=== PATIENT | male | born 1985 ===

== ENCOUNTER 2017-01-09 07:23 | Inpatient (IN) | payer OTHER ==
[2017-01-09] MEDS ORDERED: Sodium Chloride 0.9% 1,000 ML IV SCH ×2 (08:00→15:59)
--- NOTE | 2017-01-09 08:00 | ED PDOC ---
HPI: Abdomen Time Seen by Provider: 01/09/17 07:35 Chief Complaint (Nursing): Abdominal Pain Chief Complaint (Provider): Abdominal Pain History Per: Patient History/Exam Limitations: no limitations Onset/Duration Of Symptoms: Days Current Symptoms Are (Timing): Still Present Severity: Moderate Pain Scale Rating Of: 7 Location Of Pain/Discomfort: RLQ, LLQ Quality Of Discomfort: "Pain" Associated Symptoms: Loss Of Appetite. denies: Fever, Nausea, Vomiting, Diarrhea, Urinary Symptoms Exacerbating Factors: None Alleviating Factors: None Additional Complaint(s): Patient is a 31 year old male with no past medical history, presents to ED for evaluation of lower abdominal pain that began yesterday. Patient describes pain was constant but waxing and waning with no appetite. States he tried Pepto without relief last night. Denies fever,urinary changes, nausea, vomiting or diarrhea. He describes the pain as "grabbing". No radiation of the pain. Pain is a 3 or 4 on 1-10 scale. Notes this has never happened before. PMD: None Past Medical History Reviewed: Historical Data, Nursing Documentation, Vital Signs Vital Signs: Last Vital Signs Temp 98.5 F 01/09/17 07:31 Pulse 70 01/09/17 07:31 Resp 18 01/09/17 07:31 BP 142/75 01/09/17 07:31 Pulse Ox 100 01/09/17 10:56 - Medical History PMH: No Chronic Diseases - Surgical History Surgical History: No Surg Hx - Family History Family History: States: No Known Family Hx - Living Arrangements Living Arrangements: With Family - Social History Current smoker - smoking cessation education provided: No Ex-Smoker (has not smoked in the last 12 months): No Alcohol: None Drugs: Denies - Home Medications Home Medications: Ambulatory Orders Medication Instructions Recorded No Known Home Med 01/09/17 - Allergies Allergies/Adverse Reactions: Allergies Allergy/AdvReac Type Severity Reaction Status Date / Time No Known Allergies Allergy Verified 01/09/17 07:41 Review of Systems ROS Statement: Except As Marked, All Systems Reviewed And Found Negative Constitutional: Negative for: Fever, Chills Cardiovascular: Negative for: Chest Pain, Palpitations Respiratory: Negative for: Shortness of Breath Gastrointestinal: Positive for: Abdominal Pain. Negative for: Nausea, Vomiting , Diarrhea, Constipation, Melena, Hematochezia, Hematemesis Genitourinary Male: Negative for: Dysuria, Hematuria Musculoskeletal: Negative for: Back Pain Skin: Negative for: Rash Neurological: Negative for: Weakness, Numbness Physical Exam - Reviewed Nursing Documentation Reviewed: Yes Vital Signs Reviewed: Yes - Physical Exam Appears: Positive for: Non-toxic, Uncomfortable Skin: Positive for: Normal Color, Warm Eye Exam: Positive for: Normal appearance Neck: Positive for: Normal, Painless ROM Cardiovascular/Chest: Positive for: Regular Rate, Rhythm. Negative for: Murmur Respiratory: Positive for: Normal Breath Sounds. Negative for: Wheezing Gastrointestinal/Abdominal: Positive for: Bowel Sounds (active), Soft, Tenderness (bilateral low abd tenderness but very marked in RLQ). Negative for : Distended, Guarding, Rebound Back: Positive for: Normal Inspection Extremity: Positive for: Normal ROM Neurologic/Psych: Positive for: Alert, Oriented - Laboratory Results Result Diagrams: 01/09/17 08:00 01/09/17 08:00 - ECG O2 Sat by Pulse Oximetry: 100 (RA) Pulse Ox Interpretation: Normal Medical Decision Making Medical Decision Making: Time: 0755 Initial impression: Abdominal pain Differential diagnosis includes but is not limited to: appendicitis, gastroenteritis Initial plan: -- Type and screen -- CT-abdomen w/o PO contrast (using new CT abd pain protocol) -- Amylase -- CMP -- Lipase -- CBC -- PT/PTT -- U/A Time: 0900 Lab results reviewed WBC elevated at 11.8 Coags, Chem and Urine WNL 10:[address] is suggestive of early appendicitis. I will page surgery now (Dr. Shetty applications project manager today). 10:[address] Watson is covering for Dr. Caldwell. He recommends evaluation by residential treatment staff. Surg resident was paged. 11:14 AM I just spoke to residential treatment staff. She will evaluate the pt. Scribe Attestation: Documented by Nadine Zhao acting as a scribe for Zay Avalos MD MD Scribe Attestation: All medical record entries made by the Scribe were at my direction and personally dictated by me. I have reviewed the chart and agree that the record accurately reflects my personal performance of the history, physical exam, medical decision making, and the department course for this patient. I have also personally directed, reviewed, and agree with the discharge instructions and disposition. Disposition - Clinical Impression Clinical Impression: Appendicitis - Patient ED Disposition Is Patient to be Admitted: Yes Counseled Patient/Family Regarding: Studies Performed, Diagnosis - Disposition Disposition Time: 10:54 Condition: STABLE - Pt Status Changed To: Hospital Disposition Of: Inpatient - Admit Certification Admit to Inpatient:: After my assessment, the patient will require hospitalization for at least two midnights. This is because of the severity of symptoms shown, intensity of services needed, and/or the medical risk in this patient being treated as an outpatient.
[2017-01-09 08:18] LABS: BASO % 0.3 % (0.0-2.0); EOS # 0.3 K/uL (0.0-0.7); EOS % 2.7 % (0.0-4.0); HEMATOCRIT 42.4 % (35.0-51.0); LYMPH # 2.2 K/uL (1.0-4.3); LYMPH % 18.6 % (20.0-40.0); MEAN CELL VOLUME 88.8 fl (80.0-94.0); MEAN CORPUSCULAR HEMOGLOBIN 29.7 pg (27.0-31.0); MEAN CORPUSCULAR HGB CONC 33.5 g/dL (33.0-37.0); MEAN PLATELET VOLUME 10.1 fl (7.2-11.7); MONO # 0.8 K/uL (0.0-0.8); MONO % 7.2 % (0.0-10.0); NEUT # 8.4 K/uL (1.8-7.0); NEUT % 71.2 % (50.0-75.0); RED CELL DISTRIBUTION WIDTH 12.8 % (11.5-14.5); WHITE BLOOD COUNT 11.8 K/uL (4.8-10.8)
[2017-01-09 08:23] LABS: RBC URINE 4 /hpf (0-3); URINE BACTERIA RARE (<OCC); URINE BILIRUBIN NEGATIVE (NEGATIVE); URINE BLOOD NEGATIVE (NEGATIVE); URINE COLOR YELLOW (YELLOW); URINE GLUCOSE (UA) NEG (Normal); URINE KETONE NEGATIVE (NEGATIVE); URINE LEUKOCYTE ESTERASE NEG Leu/uL (Negative); URINE PROTEIN NEGATIVE (NEGATIVE); URINE UROBILINOGEN 0.2-1.0 mg/dL (0.2-1.0); WBC URINE 1 /hpf (0-5)
[2017-01-09 08:32] LABS: ALB/GLOB RATIO 1.2 (1.0-2.1); ALKALINE PHOSPHATASE 78 U/L (38-126); ALT/SGPT 61 U/L (21-72); AMYLASE 79 U/L (30-110); AST/SGOT 33 U/L (17-59); BILIRUBIN,TOTAL 0.8 mg/dl (0.2-1.3); BLOOD UREA NITROGEN 11 mg/dl (9-20); CALCIUM 9.3 mg/dL (8.4-10.2); CARBON DIOXIDE 27 mmol/L (22-30); CHLORIDE 102 mmol/L (98-107); GFR AFRICAN-AMERICAN > 60; GLUCOSE,RANDOM 94 mg/dL (75-110); LIPASE 64 U/L (23-300); POTASSIUM 3.8 MMOL/L (3.6-5.0); SODIUM 140 mmol/l (132-148); TOTAL PROTEIN 8.4 G/DL (6.3-8.2)
[2017-01-09 08:47] LABS: PARTIAL THROMBOPLASTIN TIME 32.2 Seconds (25.6-37.1)
[2017-01-09] MEDS ORDERED: Iohexol 300 100 ML IJ ONE (08:47)
[2017-01-09] MEDS ORDERED: Sodium Chloride 0.9% 50 ML IV ONE (08:47)
--- NOTE | 2017-01-09 10:21 | CT ---
PROCEDURE: CT Abdomen and Pelvis with contrast HISTORY: RLQ pain; no appetite; r/o appendicitis COMPARISON: None available. TECHNIQUE: Contrast dose: 95 mL Omnipaque 300 Radiation dose: Total exam DLP = 1076.44 mGy-cm. This CT exam was performed using one or more of the following dose reduction techniques: Automated exposure control, adjustment of the mA and/or kV according to patient size, and/or use of iterative reconstruction technique. FINDINGS: LOWER THORAX: Minimal basilar atelectasis. No visible pleural effusion or pneumothorax. Small hiatal hernia. LIVER: Hypoattenuation of the liver compatible with hepatic steatosis. GALLBLADDER AND BILE DUCTS: Unremarkable. PANCREAS: Unremarkable. SPLEEN: Unremarkable. ADRENALS: Unremarkable. KIDNEYS AND URETERS: The kidneys enhance symmetrically. No hydronephrosis or obstructing calculus identified. VASCULATURE: No aortic aneurysm. BOWEL: The stomach is nondistended. Lack of oral contrast limits evaluation for bowel pathology. Bowel loops appear within normal limits of caliber without evidence of obstruction. Mild constipation. APPENDIX: The presumed appendix measures approximately 8 mm in diameter, mildly dilated. Mild adjacent inflammatory changes evident. PERITONEUM: No significant free fluid. No definite free air. LYMPH NODES: No bulky adenopathy identified. BLADDER: Several small calcifications within the anterior nondependent portion of the urinary bladder of unclear significance. Urinary bladder wall appears mildly thickened at this location and at least 1 of the calcifications may reside within the wall. REPRODUCTIVE: The prostate gland measures approximately 3.0 x 4.1 cm. BONES: No acute osseous abnormality is detected. OTHER FINDINGS: None. IMPRESSION: The presumed appendix measures approximately 8 mm in diameter, mildly dilated. Mild adjacent inflammatory changes evident. Correlate clinically for acute appendicitis including white blood cell count and physical exam. Several small calcifications within the anterior nondependent portion of the urinary bladder of unclear significance. Urinary bladder wall appears mildly thickened at this location and at least 1 of the calcifications may reside within the wall. Mild constipation. Hepatic steatosis.
--- NOTE | 2017-01-09 11:43 | CP.PCM.HP ---
<Linsey Moralez - Last Filed: 01/09/17 11:32> History of Present Illness - History of Present Illness History of Present Illness: General Surgery - Dr. Caldwell 31yo M w/ no PMH/PSH who presents to ED with RLQ abdominal pain since yesterday around 10am. Pt states the pain began in the middle of his abdomen and slowly became worse. Last night the pain migrated to the RLQ and persisted into this morning. He describes the pain as sharp/stabbing and radiates to his LLQ. Pt. admits to mild chills. He denies any other associated symptoms including Nausea /Vomiting, Fevers, Dysuria, Hematuria, Diarrhea, Constipation. PMH/PSH: None No home medications NKDA No smoking. Social ETOH Pt was seen in the ED. Labs significant for leukocytosis w/ WBC of 12. CT abdomen pelvis was done with PO contrast and shows a borderline dilated appendix with inflammatory changes suspicious for early acute appendicitis. Surgery was called to admit the patient. Present on Admission - Present on Admission Any Indicators Present on Admission: No Review of Systems - Review of Systems All systems: reviewed and no additional remarkable complaints except (as per HPI ) Past Patient History - Past Social History Alcohol: None Drugs: Denies - PSYCHIATRIC Hx Substance Use: No - SURGICAL HISTORY Hx Surgeries: No Meds Allergies/Adverse Reactions: Allergies Allergy/AdvReac Type Severity Reaction Status Date / Time No Known Allergies Allergy Verified 01/09/17 07:41 Physical Exam - Constitutional Appears: No Acute Distress - Head Exam Head Exam: ATRAUMATIC, NORMAL INSPECTION, NORMOCEPHALIC - Eye Exam Eye Exam: Normal appearance - ENT Exam ENT Exam: Mucous Membranes Moist - Respiratory Exam Respiratory Exam: NORMAL BREATHING PATTERN. absent: Respiratory Distress - Cardiovascular Exam Cardiovascular Exam: REGULAR RHYTHM - GI/Abdominal Exam GI & Abdominal Exam: Guarding, Rebound, Soft, Tenderness (RLQ, McBurney's pt, + Rovsing's sign). absent: Firm, Hernia, Rigid - Neurological Exam Neurological exam: Alert, Oriented x3 - Psychiatric Exam Psychiatric exam: Normal Affect, Normal Mood - Skin Skin Exam: Dry, Intact Results - Vital Signs Recent Vital Signs: Last Vital Signs Temp 98.5 F 01/09/17 11:21 Pulse 76 01/09/17 11:21 Resp 18 01/09/17 11:21 BP 142/75 01/09/17 11:21 Pulse Ox 100 01/09/17 11:21 - Labs Result Diagrams: 01/09/17 08:00 01/09/17 08:00 Assessment & Plan - Assessment and Plan (Free Text) Assessment: 31yo M w/ acute appendicitis -NPO, IVF -IV Abx -Pain control prn -OR for Lap Appendectomy ~2pm Dw Dr. Paulette Moralez PGY2 <Darrell Caldwell - Last Filed: 01/09/17 14:19> History of Present Illness - History of Present Illness History of Present Illness: Patient was seen and examined at the bedside. Agree with resident's note above Results - Vital Signs Recent Vital Signs: Last Vital Signs Temp 98.5 F 01/09/17 11:21 Pulse 72 01/09/17 12:30 Resp 18 01/09/17 11:21 BP 142/75 01/09/17 11:21 Pulse Ox 100 01/09/17 11:21 - Labs Result Diagrams: 01/09/17 08:00 01/09/17 08:00
[2017-01-09] MEDS ORDERED: Piperacillin/Tazobact 3.375 gm Inj IVPB ONE (11:46)
[2017-01-09] MEDS ORDERED: Piperacillin/Tazobact 3.375 GM in Sodium Chloride 0.9% 100 ML IVPB SCH (12:00)
[2017-01-09] MEDS ORDERED: Propofol 10 mg/ml Inj (20 ML) ONE ×2 (13:48→14:49)
[2017-01-09] MEDS ORDERED: Midazolam 2 MG/2 ML VIAL ONE (13:50)
[2017-01-09] MEDS ORDERED: Succinylcholine 200 mg/10 ml Inj IV ONE (13:51)
[2017-01-09] MEDS ORDERED: Rocuronium 10 mg/ml (5 ml) ONE (13:51)
[2017-01-09] MEDS ORDERED: Bupivacaine 0.5% Inj(30mL) ONE (14:44)
[2017-01-09] MEDS ORDERED: Neostigmine Methylsulfate 3mg/3ml Syringe IV ONE (14:45)
[2017-01-09] MEDS ORDERED: Neostigmine Methylsulfate 2 MG/2 ML ML IV ONE (14:45)
[2017-01-09] MEDS ORDERED: Dexamethasone 4 mg/1 ml ONE (14:45)
[2017-01-09] MEDS ORDERED: Lactated Ringer's 1,000 ML IV ONE (15:05)
[2017-01-09] MEDS ORDERED: HYDROmorphone 0.5 mg/0.5 ml ISec IVP PRN (15:15)
--- NOTE | 2017-01-09 15:16 | PCM.SURG1 ---
Surgeon's Initial Post Op Note - Surgeon's Notes Surgeon: Dr. Ian Caldwell Field Technician: Linsey Moralez, PGY2; Sherin Moya PGY1 Pre-Operative Diagnosis: Acute appendicitis Operative Findings: same Post-Operative Diagnosis: same Operation Performed: Laparoscopic appendectomy Specimen/Specimens Removed: appendix Estimated Blood Loss: EBL {In ML}: 5 Date of Surgery/Procedure: 01/09/17 Time of Surgery/Procedure: 14:15
[2017-01-09] MEDS ORDERED: HYDROmorphone 0.5 mg/0.5 ml ISec ONE (15:17)
--- NOTE | 2017-01-09 15:19 | OP ---
PROCEDURE DATE: 01/09/2017 PREOPERATIVE DIAGNOSIS: Acute appendicitis. POSTOPERATIVE DIAGNOSIS: Acute appendicitis. PROCEDURE: Laparoscopic appendectomy. SURGEON: Darrell Caldwell MD FIRE CONTROL SYSTEM INSTALLER: Kirt ANESTHESIA: General endotracheal intubation. INTRAVENOUS FLUIDS: Crystalloids. ESTIMATED BLOOD LOSS: 2 mL. INTRAOPERATIVE FINDINGS: Acute appendicitis. SPECIMEN: Appendix. BRIEF HISTORY: The patient is a very pleasant 31-year-old gentleman who presented to the hospital co mplaining of right lower quadrant abdominal pain for the duration of the past 24 hours. Upon further investigation, patient was found to have elevated white blood cell count to 11.8 and CAT scan findin gs significant for acute appendicitis. All the risks and benefits of the procedure were explained to the patient and with the patient having a full understanding of all the risks and benefits involved, informed consent was obtained and patient was taken to the operating room for above stated procedure . DESCRIPTION OF PROCEDURE: The patient was brought into the operating room and placed supine on the o perating table. Bilateral Flowtron boots were applied to patient's lower extremities. After success ful induction of anesthesia and successful endotracheal intubation by the anesthesia team, Abdullahi cath eter was inserted into the patient's urinary bladder. The patient's abdomen was shaved and prepped w ith ChloraPrep stick and draped in the standard surgical fashion. Prior to the beginning of the proc edure, timeout was called in the room and everyone in the room were in agreement. Using Veress needl e, patient's abdomen was entered at the umbilicus and pneumoperitoneum was achieved with good opening pressures. Once this was accomplished, using an 11 blade scalpel knife, an approximately 5 mm incis ion was made in a longitudinal fashion in the umbilicus and subsequent to that, a 5 mm trocar was int roduced into the patient's abdomen. At that point in time, 5 mm 0-degree scope was introduced into t he patient's abdomen and abdomen was inspected. Then, attention was turned to the lower mid abdomen. Using 11 blade scalpel knife, approximately 5 mm incision was made in transverse fashion in the low er mid abdomen and subsequent to that, another 5 mm trocar was introduced into the patient's abdomen. At that point in time, attention was turned to the left lower quadrant of the patient's abdomen. U sing 11 blade scalpel knife, approximately 1 cm incision was made in a transverse fashion and subsequ ent to that, 12 mm trocar was introduced into the patient's abdomen. At that point in time, appendix was mobilized using 2 atraumatic bowel graspers and subsequent to that, using [place] dissector, th e window was created between the appendix and the mesoappendix. Once that was accomplished, appendix was taken right at the base with 45 mm blue load Endo-YULIANA stapler and subsequent to that, mesoappend ix was taken with 45 mm llanes load on Endo-YULIANA stapler. At that point in time, EndoCatch bag was intr oduced into the patient's abdomen, appendix was placed inside of the bag and the bag was closed. At that point in time, staple line was inspected for hemostasis. Hemostasis was confirmed. The 12 mm t rocar together with EndoCatch bag and appendix were removed from the patient's abdomen and passed off to the [facility] as a specimen. Fascial layer at the 12 mm trocar site was closed with 1 interrupt ed 0 Vicryl suture on UR-5 needle and subsequent to that, the patient's abdomen was fully desufflated . The rest of the trocars were removed from the patient's abdomen and skin was closed with 4-0 Monoc ryl suture in a running subcuticular fashion. At the end of the procedure, incision sites were infil trated with Marcaine anesthetic. The patient's abdomen was washed and dried and a Dermabond was appl ied to the incision sites. The patient had removal of the Abdullahi catheter from his urinary bladder. Subsequently, was successfully extubated by the anesthesia team, transferred to the stretcher and camryn en to the recovery room in a stable condition. At the end of the procedure, all instrument counts, n eedles and sponges were correct. Darrell Caldwell MD cc: [id number] TT: 01/09/2017 15:18:24 en
[2017-01-09] MEDS ORDERED: Oxycodone/Acetaminophen 5/325 mg Tab PO PRN (15:20)
[2017-01-09] MEDS: Piperacillin/Tazobact 3.375 GM in Sodium Chloride 0.9% 100 ML IVPB SCH (18:06)
[2017-01-09] MEDS: Lactated Ringer's 1,000 ML IV SCH (23:15)
[2017-01-10] MEDS: Piperacillin/Tazobact 3.375 GM in Sodium Chloride 0.9% 100 ML IVPB SCH ×3 (00:30→12:57)
[2017-01-10 08:05] LABS: BASO % 0.1 % (0.0-2.0); HEMATOCRIT 38.5 % (35.0-51.0); LYMPH % 9.4 % (20.0-40.0); MEAN CELL VOLUME 88.4 fl (80.0-94.0); MEAN CORPUSCULAR HEMOGLOBIN 29.9 pg (27.0-31.0); MEAN CORPUSCULAR HGB CONC 33.8 g/dL (33.0-37.0); MEAN PLATELET VOLUME 10.3 fl (7.2-11.7); MONO # 0.6 K/uL (0.0-0.8); MONO % 5.5 % (0.0-10.0); NEUT # 8.6 K/uL (1.8-7.0); PLATELET COUNT 192 K/uL (130-400); RED CELL DISTRIBUTION WIDTH 12.7 % (11.5-14.5); WHITE BLOOD COUNT 10.2 K/uL (4.8-10.8)
--- NOTE | 2017-01-10 08:21 | CP.PCM.DIS ---
Provider - Provider Date of Admission: 01/09/17 10:51 Attending physician: Darrell Caldwell MD Time Spent in preparation of Discharge (in minutes): 40 Hospital Course - Lab Results Lab Results: Most Recent Lab Values WBC 10.2 K/uL (4.8-10.8) 01/10/17 06:00 RBC 4.35 Mil/uL (4.40-5.90) L 01/10/17 06:00 Hgb 13.0 g/dL (12.0-18.0) 01/10/17 06:00 Hct 38.5 % (35.0-51.0) 01/10/17 06:00 MCV 88.4 fl (80.0-94.0) 01/10/17 06:00 MCH 29.9 pg (27.0-31.0) 01/10/17 06:00 MCHC 33.8 g/dL (33.0-37.0) 01/10/17 06:00 RDW 12.7 % (11.5-14.5) 01/10/17 06:00 Plt Count 192 K/uL (130-400) 01/10/17 06:00 MPV 10.3 fl (7.2-11.7) 01/10/17 06:00 Neut % (Auto) 85.0 % (50.0-75.0) H 01/10/17 06:00 Lymph % (Auto) 9.4 % (20.0-40.0) L 01/10/17 06:00 [place] % (Auto) 5.5 % (0.0-10.0) 01/10/17 06:00 Eos % (Auto) 0.0 % (0.0-4.0) 01/10/17 06:00 Baso % (Auto) 0.1 % (0.0-2.0) 01/10/17 06:00 Neut # 8.6 K/uL (1.8-7.0) H 01/10/17 06:00 Lymph # 1.0 K/uL (1.0-4.3) 01/10/17 06:00 [place] # 0.6 K/uL (0.0-0.8) 01/10/17 06:00 Eos # 0.0 K/uL (0.0-0.7) 01/10/17 06:00 Baso # 0.0 K/uL (0.0-0.2) 01/10/17 06:00 PT 12.3 Seconds (9.8-13.1) 01/09/17 08:00 INR 1.1 (0.9-1.2) 01/09/17 08:00 APTT 32.2 Seconds (25.6-37.1) 01/09/17 08:00 Sodium 140 mmol/l (132-148) 01/09/17 08:00 Potassium 3.8 MMOL/L (3.6-5.0) 01/09/17 08:00 Chloride 102 mmol/L (98-107) 01/09/17 08:00 Carbon Dioxide 27 mmol/L (22-30) 01/09/17 08:00 Anion Gap 15 (10-20) 01/09/17 08:00 BUN 11 mg/dl (9-20) 01/09/17 08:00 Creatinine 0.8 mg/dL (0.8-1.5) 01/09/17 08:00 Est GFR ( Amer) > 60 01/09/17 08:00 Est GFR (Non-Af Amer) > 60 01/09/17 08:00 Random Glucose 94 mg/dL (75-110) 01/09/17 08:00 Calcium 9.3 mg/dL (8.4-10.2) 01/09/17 08:00 Total Bilirubin 0.8 mg/dl (0.2-1.3) 01/09/17 08:00 AST 33 U/L (17-59) 01/09/17 08:00 ALT 61 U/L (21-72) 01/09/17 08:00 Alkaline Phosphatase 78 U/L (38-126) 01/09/17 08:00 Total Protein 8.4 G/DL (6.3-8.2) H 01/09/17 08:00 Albumin 4.7 g/dL (3.5-5.0) 01/09/17 08:00 Globulin 3.8 gm/dL (2.2-3.9) 01/09/17 08:00 Albumin/Globulin Ratio 1.2 (1.0-2.1) 01/09/17 08:00 Amylase 79 U/L (30-110) 01/09/17 08:00 Lipase 64 U/L (23-300) 01/09/17 08:00 Urine Color Yellow (YELLOW) 01/09/17 08:00 Urine Clarity Clear (Clear) 01/09/17 08:00 Urine pH 7.0 (5.0-8.0) 01/09/17 08:00 Ur Specific [place] 1.021 (1.003-1.030) 01/09/17 08:00 Urine Protein Negative mg/dL (NEGATIVE) 01/09/17 08:00 Urine Glucose (UA) Neg mg/dL (Normal) 01/09/17 08:00 Urine Ketones Negative mg/dL (NEGATIVE) 01/09/17 08:00 Urine Blood Negative (NEGATIVE) 01/09/17 08:00 Urine Nitrate Negative (NEGATIVE) 01/09/17 08:00 Urine Bilirubin Negative (NEGATIVE) 01/09/17 08:00 Urine Urobilinogen 0.2-1.0 mg/dL (0.2-1.0) 01/09/17 08:00 Ur Leukocyte Esterase Neg Sanjay/uL (Negative) 01/09/17 08:00 Urine RBC (Auto) 4 /hpf (0-3) H 01/09/17 08:00 Urine Microscopic WBC 1 /hpf (0-5) 01/09/17 08:00 Urine Bacteria Rare (<OCC) 01/09/17 08:00 Blood Type B POSITIVE 01/09/17 08:00 Blood Type Confirm B POSITIVE 01/09/17 16:43 Antibody Screen Negative 01/09/17 08:00 BBK History Checked No verified bt 01/09/17 08:00 - Hospital Course Hospital Course: 31M presented with abdominal pain 2/2 to appendix source. WBC 11.8 CT scan showed mildly dilated appendix with inflammatory surrounding. Patient underwent a Laparoscopic appendectomy. Case and post op course was uneventful. Patient feels much better. WBC trending down. Patient can follow up in the office. Discharge Exam - Head Exam Head Exam: ATRAUMATIC, NORMAL INSPECTION, NORMOCEPHALIC - ENT Exam ENT Exam: Mucous Membranes Moist - Respiratory Exam Respiratory Exam: Clear to PA & Lateral, NORMAL BREATHING PATTERN - Cardiovascular Exam Cardiovascular Exam: REGULAR RHYTHM, +S1, +S2 - GI/Abdominal Exam GI & Abdominal Exam: Soft, Tenderness (very mildly). absent: Distended, Firm, Guarding, Rebound, Rigid Additional comments: incisions dry clean and intact - Neurological Exam Neurological exam: Alert, Oriented x3 - Skin Skin Exam: Dry, Intact, Normal Color, Warm Discharge Plan - Follow Up Plan Condition: STABLE Disposition: HOME/ ROUTINE
[2017-01-10] MEDS ORDERED: Enoxaparin 40 mg Syringe SC SCH (09:00)
[2017-01-10] MEDS: Lactated Ringer's 1,000 ML IV SCH ×2 (09:13→17:36)
[2017-01-10 12:08] LABS: NEUTROPHIL 82 % (42-75); TOTAL CELLS COUNTED 100
[2017-01-10 13:02] VITALS: O2SAT 98
[2017-01-10 15:54] VITALS: BP 131/70; PULSE 79; RESP 16; TEMP 97.9
== END 2017-01-10 17:33 | disposition home or self-care (01) | DRG 883 ==
LOC: H.ER 07:23 → H.ERHOLD 10:51 → H.MEDSURG1 16:30
PROVIDERS: ADMIT Surgery; ATTEND Surgery
PROC: 0DTJ4ZZ Resection of Appendix, Percutaneous Endoscopic Approach (ICD-10-PCS; principal; 2017-01-09 14:00)
DX: K35.80 Unspecified acute appendicitis (principal)